=== PATIENT | female | born 1950 | race Hispanic/Latino ===

== ENCOUNTER → 2019-12-27 | Day surgery (SDC) | payer MEDICARE ==
[~2019-12-27] MED LIST: ALEVE220 M1 PO; AMLODIPINE BESYL5 MG PO; ASPIRIN325 MG PO; CYMBALTA30 MG PO; LIDOCAINE 1% W/EPINEPHRINE 20 ML VIAL ONE; LOSARTAN-HCTZ1 EAC1 PO; METOPROLOL SUCC25 MG PO
[2019-12-27 11:20] VITALS: BP 124/71
--- NOTE | 2019-12-27 14:28 | Operative Report ---
DATE OF PROCEDURE: 12/27/2019 SURGEON: Lei Polanco MD INDICATION: Atrial fibrillation. PROCEDURE PERFORMED: Insertable loop recorder. COMPLICATIONS: None. BLOOD LOSS: Minimal. RECOMMENDATIONS: Remote monitoring. PROCEDURE IN DETAIL: Left anterior chest wall was anesthetized using subcutaneous lidocaine. A nooked LINQ, serial #[id number] was inserted subcutaneously without complication. Skin approximated using Dermabond. The patient was discharged home the same day. Lei Polanco MD KSB/MODL /[id number]
== END | disposition home or self-care (01) ==
LOC: CATH LAB 09:51
PROVIDERS: ATTEND Internal Medicine Interventional Cardiology
DX: I48.91 Unspecified atrial fibrillation (principal); I10 Essential (primary) hypertension; I48.92 Unspecified atrial flutter; F41.9 Anxiety disorder, unspecified; Z01.812 Encounter for preprocedural laboratory examination; Z11.59 Encounter for screening for other viral diseases; Z68.41 Body mass index [BMI] 40.0-44.9, adult
CPT/HCPCS: 33285; 87635; C1764